=== PATIENT | male | born 1960 | race Caucasian/White ===

== ENCOUNTER 2022-09-06 13:02 | Inpatient (IN) ==
[2022-09-06 13:57] LABS: ABS Lymphocytes 1.5 10^3/uL (1.0-4.8); ABS Monocytes 1.4 10^3/uL (0.0-1.1); ABS Neutrophils 5.2 10^3/uL (1.5-7.6); ABS Nucleated RBC 0.01 10^3/ul; Eosinophil % 0.1 %; Hematocrit 43.6 % (38-53); Hemoglobin 15.3 g/dL (13.2-16.3); Lymphocyte % 18.6 %; Mean Corpuscular Hemoglobin 30.1 pg (27-33); Mean Corpuscular Hgb Conc 35.1 g/dL (31-36); Mean Corpuscular Volume 85.6 fL (80-97); Mean Platelet Volume 9.7 fL (7.5-11.2); Nucleated Red Blood Cells % 0.1 /100 WBC (0.0-0.4); Platelet Count 233 10^3/uL (150-450); Red Blood Count 5.09 10^6/uL (4.06-5.63); Red Cell Distribution Width 14.6 % (12-17); White Blood Count 8.2 10^3/uL (3.6-10.2)
[2022-09-06 14:09] LABS: INR 1.54 (0.88-1.18)
[2022-09-06 14:23] LABS: AST 290 U/L (13-39); Albumin 4.5 g/dL (3.2-5.2); Albumin/Globulin Ratio 1.6 (1-3); Alkaline Phosphatase 53 U/L (35-149); Anion Gap 10 mmol/L (2-16); Blood Urea Nitrogen 7 mg/dL (6-24); CO2 Carbon Dioxide 27 mmol/L (22-32); Calcium 9.8 mg/dL (8.6-10.3); Chloride 89 mmol/L (101-111); Creatinine, Serum 0.69 mg/dL (0.67-1.17); Globulin 2.9 g/dL (2-4); Glucose 106 mg/dL (70-100); Potassium 3.7 mmol/L (3.5-5.0); Sodium 126 mmol/L (135-145); Total Protein 7.4 g/dL (6.4-8.9); eGFR CKD-EPI 105.9 (>60)
[2022-09-06 14:24] LABS: Acetaminophen < 15 mcg/mL; Alcohol, S < 13 mg/dL (<13); Salicylate < 2.50 mg/dL (<30)
[2022-09-06 14:33] LABS: TSH Ultra Thyroid Stim Horm 1.13 mcIU/mL (0.34-5.60)
[2022-09-06 14:36] LABS: Valproic Acid < 13.0 mcg/mL (50-100)
[2022-09-06 14:39] LABS: ALT 676 U/L (7-52)
[2022-09-06] MEDS ORDERED: LORazepam 2 mg VIAL 1 ml IV PUSH ONE (14:47)
[2022-09-06] MEDS ORDERED: Lorazepam PYXIS KEY PRN (14:47)
[2022-09-06] MEDS ORDERED: Lactated Ringers 1000 ml BAG 1,000 ML IV ONE (14:48)
[2022-09-06] MEDS ORDERED: NS 0.9% 1000 ml BAG 1,000 ML IV SCH (16:45)
[2022-09-06] MEDS: Pantoprazole VIAL 40 MG VIAL IV SCH (17:39)
[2022-09-06] MEDS ORDERED: ACETYLCYSTEINE IV ONE ×2 (18:00→19:30)
[2022-09-06] MEDS ORDERED: D5W IV ONE ×2 (18:00→19:30)
[2022-09-07] MEDS ORDERED: ACETYLCYSTEINE IV ONE
[2022-09-07] MEDS ORDERED: D5W IV ONE
[2022-09-07 04:52] LABS: ABS Eosinophils 0.1 10^3/uL (0.0-0.5); ABS Lymphocytes 2.1 10^3/uL (1.0-4.8); ABS Monocytes 1.2 10^3/uL (0.0-1.1); ABS Neutrophils 3.5 10^3/uL (1.5-7.6); ABS Nucleated RBC 0.01 10^3/ul; Eosinophil % 0.9 %; Hematocrit 41.3 % (38-53); Hemoglobin 14.3 g/dL (13.2-16.3); Lymphocyte % 30.3 %; Mean Corpuscular Hemoglobin 30.1 pg (27-33); Mean Corpuscular Hgb Conc 34.7 g/dL (31-36); Mean Corpuscular Volume 86.8 fL (80-97); Mean Platelet Volume 9.8 fL (7.5-11.2); Nucleated Red Blood Cells % 0.2 /100 WBC (0.0-0.4); Platelet Count 195 10^3/uL (150-450); Red Blood Count 4.76 10^6/uL (4.06-5.63); Red Cell Distribution Width 14.7 % (12-17); White Blood Count 6.9 10^3/uL (3.6-10.2)
[2022-09-07 05:00] LABS: Activated Partial Thrombo Time 31.7 seconds (26.0-38.0); INR 1.95 (0.88-1.18)
[2022-09-07 05:07] LABS: Albumin 3.7 g/dL (3.2-5.2); Albumin/Globulin Ratio 1.7 (1-3); Calcium 8.6 mg/dL (8.6-10.3); Creatinine, Serum 0.65 mg/dL (0.67-1.17); Globulin 2.2 g/dL (2-4); Magnesium 1.8 mg/dL (1.9-2.7); Potassium 3.4 mmol/L (3.5-5.0); Total Bilirubin 0.7 mg/dL (0.2-1.0); Total Protein 5.9 g/dL (6.4-8.9); eGFR CKD-EPI 107.9 (>60)
[2022-09-07] MEDS ORDERED: KCL 20 MEQ/100 ML IVPREMIX 20 MEQ/100 ML BAG IV ONE (05:21)
[2022-09-07] MEDS ORDERED: Potassium Chlor 20 meq TAB.ER PO ONE (05:21)
[2022-09-07] MEDS ORDERED: Magnesium Sulfate 2 gm BAG 2 GM/50 ML BAG IVPB ONE (05:22)
[2022-09-07 09:00] LABS: Urine Appearance Clear; Urine Bilirubin Negative (Negative); Urine Blood Negative (Negative); Urine Color Yellow; Urine Glucose Negative (Negative); Urine Ketones 1+ (Negative); Urine Nitrite Negative (Negative); Urine Protein Negative (Negative); Urine Specific Gravity 1.006 (1.002-1.030); Urine Urobilinogen Negative (Negative)
[2022-09-07] MEDS ORDERED: Phytonadione Oral Solution 5 MG/25 ML UDC PO ONE (09:30)
[2022-09-07] MEDS: Pantoprazole VIAL 40 MG VIAL IV SCH (09:39)
[2022-09-07 09:44] LABS: Urine Benzodiazepine Screen None Detected (None Detect); Urine Cannabinoids Screen None Detected (None Detect); Urine Opiates Screen None Detected (None Detect)
[2022-09-07 14:53] LABS: Albumin 3.8 g/dL (3.2-5.2); Albumin/Globulin Ratio 1.7 (1-3); Direct Bilirubin 0.1 mg/dL (0.03-0.18); Globulin 2.3 g/dL (2-4); Indirect Bilirubin 0.5 mg/dL (0.3-1.0); Total Bilirubin 0.6 mg/dL (0.2-1.0); Total Protein 6.1 g/dL (6.4-8.9)
[2022-09-07 15:20] LABS: INR 1.67 (0.88-1.18)
[2022-09-08 06:04] LABS: ABS Eosinophils 0.1 10^3/uL (0.0-0.5); ABS Lymphocytes 2.7 10^3/uL (1.0-4.8); ABS Neutrophils 2.7 10^3/uL (1.5-7.6); ABS Nucleated RBC 0.01 10^3/ul; Eosinophil % 1.7 %; Hematocrit 38.3 % (38-53); Hemoglobin 13.3 g/dL (13.2-16.3); Lymphocyte % 41.4 %; Mean Corpuscular Hemoglobin 30.5 pg (27-33); Mean Corpuscular Hgb Conc 34.7 g/dL (31-36); Mean Corpuscular Volume 87.9 fL (80-97); Nucleated Red Blood Cells % 0.1 /100 WBC (0.0-0.4); Platelet Count 185 10^3/uL (150-450); Red Blood Count 4.35 10^6/uL (4.06-5.63); Red Cell Distribution Width 14.5 % (12-17); White Blood Count 6.5 10^3/uL (3.6-10.2)
[2022-09-08 06:12] LABS: INR 1.25 (0.88-1.18)
[2022-09-08 06:35] LABS: Albumin 3.5 g/dL (3.2-5.2); Albumin/Globulin Ratio 1.6 (1-3); Calcium 8.5 mg/dL (8.6-10.3); Creatinine, Serum 0.55 mg/dL (0.67-1.17); Globulin 2.2 g/dL (2-4); Magnesium 1.9 mg/dL (1.9-2.7); Potassium 3.4 mmol/L (3.5-5.0); Total Bilirubin 0.7 mg/dL (0.2-1.0); Total Protein 5.7 g/dL (6.4-8.9); eGFR CKD-EPI 113.5 (>60)
[2022-09-08] MEDS: Pantoprazole VIAL 40 MG VIAL IV SCH (08:03)
[2022-09-09 08:15] LABS: ABS Eosinophils 0.1 10^3/uL (0.0-0.5); ABS Lymphocytes 1.8 10^3/uL (1.0-4.8); ABS Monocytes 0.8 10^3/uL (0.0-1.1); ABS Neutrophils 4.7 10^3/uL (1.5-7.6); Eosinophil % 1.6 %; Hematocrit 40.2 % (38-53); Lymphocyte % 24.5 %; Mean Corpuscular Hemoglobin 30.6 pg (27-33); Mean Corpuscular Hgb Conc 34.9 g/dL (31-36); Mean Corpuscular Volume 87.7 fL (80-97); Mean Platelet Volume 9.8 fL (7.5-11.2); Platelet Count 206 10^3/uL (150-450); Red Blood Count 4.58 10^6/uL (4.06-5.63); Red Cell Distribution Width 14.7 % (12-17); White Blood Count 7.5 10^3/uL (3.6-10.2)
[2022-09-09 08:37] LABS: Albumin 3.8 g/dL (3.2-5.2); Albumin/Globulin Ratio 1.7 (1-3); Creatinine, Serum 0.7 mg/dL (0.67-1.17); Globulin 2.3 g/dL (2-4); HDL Cholesterol 48.2 mg/dL; INR 1.21 (0.88-1.18); Magnesium 1.9 mg/dL (1.9-2.7); Potassium 3.8 mmol/L (3.5-5.0); Total Bilirubin 0.8 mg/dL (0.2-1.0); Total Protein 6.1 g/dL (6.4-8.9); eGFR CKD-EPI 105.5 (>60)
[2022-09-09] MEDS ORDERED: Albuterol HFA INHALER 8 gm MDI INH PRN (12:11)
[2022-09-12 20:39] LABS: Albumin 4.4 g/dL (3.2-5.2); Albumin/Globulin Ratio 1.5 (1-3); Calcium 10.1 mg/dL (8.6-10.3); Creatinine, Serum 0.98 mg/dL (0.67-1.17); Potassium 4.1 mmol/L (3.5-5.0); Total Bilirubin 0.5 mg/dL (0.2-1.0); Total Protein 7.4 g/dL (6.4-8.9); eGFR CKD-EPI 87.7 (>60)
[2022-09-18 08:22] VITALS: BP 149/84
== END 2022-09-18 15:00 | disposition home or self-care (01) | DRG 918 ==
LOC: ED 13:02 → SUATTDRO 15:45 → EDHOLD 15:45 → ICU 17:20 → MED 09-08 10:35 → BSU 09-08 14:49
PROVIDERS: ADMIT Internal Medicine; ATTEND Psychiatry & Neurology Psychiatry

== ENCOUNTER 2022-09-20 23:07 | Inpatient (IN) ==
[2022-09-21 01:09] LABS: Urine Appearance Clear; Urine Bilirubin Negative (Negative); Urine Blood Negative (Negative); Urine Color Straw; Urine Glucose Negative (Negative); Urine Ketones Negative (Negative); Urine Nitrite Negative (Negative); Urine Protein Negative (Negative); Urine Specific Gravity 1.002 (1.002-1.030); Urine Urobilinogen Negative (Negative)
[2022-09-21 01:21] LABS: ALT 31 U/L (7-52); AST 18 U/L (13-39); Albumin 4.5 g/dL (3.2-5.2); Albumin/Globulin Ratio 1.7 (1-3); Alkaline Phosphatase 59 U/L (35-149); Anion Gap 7 mmol/L (2-16); Blood Urea Nitrogen 7 mg/dL (6-24); CO2 Carbon Dioxide 31 mmol/L (22-32); Calcium 9.9 mg/dL (8.6-10.3); Chloride 90 mmol/L (101-111); Creatinine, Serum 0.69 mg/dL (0.67-1.17); Globulin 2.6 g/dL (2-4); Glucose 91 mg/dL (70-100); Potassium 4.1 mmol/L (3.5-5.0); Sodium 128 mmol/L (135-145); Total Protein 7.1 g/dL (6.4-8.9); eGFR CKD-EPI 105.3 (>60)
[2022-09-21 01:22] LABS: Urine Benzodiazepine Screen None Detected (None Detect); Urine Cannabinoids Screen None Detected (None Detect); Urine Opiates Screen None Detected (None Detect)
[2022-09-21 01:23] LABS: Hematocrit 42.6 % (38-53); Hemoglobin 14.9 g/dL (13.2-16.3); Mean Corpuscular Hemoglobin 30.7 pg (27-33); Mean Corpuscular Hgb Conc 34.9 g/dL (31-36); Red Blood Count 4.85 10^6/uL (4.06-5.63); Red Cell Distribution Width 14.9 % (12-17)
[2022-09-21 01:39] LABS: Acetaminophen < 15 mcg/mL; Alcohol, S < 13 mg/dL (<13)
[2022-09-21 01:40] LABS: Salicylate < 2.50 mg/dL (<30)
[2022-09-21 01:55] LABS: TSH Ultra Thyroid Stim Horm 4.36 mcIU/mL (0.34-5.60)
[2022-09-21 02:13] LABS: ABS Lymphocytes 2.2 10^3/uL (1.0-4.8); ABS Neutrophils 3.7 10^3/uL (1.5-7.6); ABS Nucleated RBC 0.01 10^3/ul; Eosinophil % 0.5 %; Lymphocyte % 31.6 %; Mean Platelet Volume 10.8 fL (7.5-11.2); Nucleated Red Blood Cells % 0.1 /100 WBC (0.0-0.4); Platelet Count 218 10^3/uL (150-450)
[2022-09-21] MEDS ORDERED: Al Hydrox/Mg Hydrox/Simet LIQ 30 ML UDC PO PRN (05:25)
[2022-09-21] MEDS ORDERED: Albuterol HFA INHALER 8 gm MDI INH PRN (05:30)
[2022-09-21] MEDS: Vitamin THERAPEUTIC TAB PO SCH (08:44)
[2022-09-22] MEDS: Vitamin THERAPEUTIC TAB PO SCH (10:35)
[2022-09-23] MEDS: Vitamin THERAPEUTIC TAB PO SCH (09:58)
[2022-09-24] MEDS: Vitamin THERAPEUTIC TAB PO SCH (09:03)
[2022-09-24 11:37] LABS: Albumin 4.4 g/dL (3.2-5.2); Albumin/Globulin Ratio 1.6 (1-3); Calcium 9.8 mg/dL (8.6-10.3); Creatinine, Serum 0.86 mg/dL (0.67-1.17); Globulin 2.7 g/dL (2-4); Potassium 4.6 mmol/L (3.5-5.0); Total Bilirubin 0.6 mg/dL (0.2-1.0); Total Protein 7.1 g/dL (6.4-8.9); eGFR CKD-EPI 98.5 (>60)
[2022-09-25] MEDS: Vitamin THERAPEUTIC TAB PO SCH (08:32)
[2022-09-26] MEDS: Vitamin THERAPEUTIC TAB PO SCH (08:23)
[2022-09-27] MEDS: Vitamin THERAPEUTIC TAB PO SCH (09:44)
[2022-09-28] MEDS: Vitamin THERAPEUTIC TAB PO SCH (07:57)
[2022-09-28 08:33] LABS: Hematocrit 41.8 % (38-53); Hemoglobin 14.3 g/dL (13.2-16.3); Mean Corpuscular Hemoglobin 30.2 pg (27-33); Mean Corpuscular Hgb Conc 34.2 g/dL (31-36); Mean Corpuscular Volume 88.2 fL (80-97); Mean Platelet Volume 10.5 fL (7.5-11.2); Platelet Count 219 10^3/uL (150-450); Red Blood Count 4.75 10^6/uL (4.06-5.63); Red Cell Distribution Width 15.4 % (12-17); White Blood Count 5.9 10^3/uL (3.6-10.2)
[2022-09-28 09:12] LABS: ABS Lymphocytes 2.7 10^3/uL (1.0-4.8); ABS Monocytes 0.8 10^3/uL (0.0-1.1); ABS Neutrophils 2.4 10^3/uL (1.5-7.6); ABS Nucleated RBC 0.01 10^3/ul; Eosinophil % 0.8 %; Lymphocyte % 44.9 %; Nucleated Red Blood Cells % 0.1 /100 WBC (0.0-0.4)
[2022-09-29] MEDS: Vitamin THERAPEUTIC TAB PO SCH (09:05)
[2022-09-30] MEDS: Vitamin THERAPEUTIC TAB PO SCH (08:05)
[2022-10-01] MEDS: Vitamin THERAPEUTIC TAB PO SCH (08:24)
[2022-10-02] MEDS: Vitamin THERAPEUTIC TAB PO SCH (08:40)
[2022-10-02 10:41] VITALS: BP 135/90
[2022-10-03] MEDS: Vitamin THERAPEUTIC TAB PO SCH (07:17)
[2022-10-03 08:10] LABS: ABS Eosinophils 0.1 10^3/uL (0.0-0.5); ABS Lymphocytes 2.3 10^3/uL (1.0-4.8); ABS Monocytes 0.9 10^3/uL (0.0-1.1); ABS Neutrophils 3.7 10^3/uL (1.5-7.6); ABS Nucleated RBC 0.01 10^3/ul; Hematocrit 42.9 % (38-53); Hemoglobin 14.7 g/dL (13.2-16.3); Lymphocyte % 32.8 %; Mean Corpuscular Hemoglobin 30.4 pg (27-33); Mean Corpuscular Hgb Conc 34.3 g/dL (31-36); Mean Corpuscular Volume 88.6 fL (80-97); Mean Platelet Volume 10.4 fL (7.5-11.2); Nucleated Red Blood Cells % 0.1 /100 WBC (0.0-0.4); Platelet Count 226 10^3/uL (150-450); Red Blood Count 4.84 10^6/uL (4.06-5.63); Red Cell Distribution Width 15.5 % (12-17)
== END 2022-10-03 12:10 | disposition home or self-care (01) | DRG 885 ==
LOC: ED 23:07 → EDHOLD 09-21 04:44 → BSU 09-21 05:48
PROVIDERS: ADMIT Psychiatry & Neurology Psychiatry; ATTEND Student in an Organized Health Care Education/Training Program

== ENCOUNTER 2022-10-11 10:15 | Inpatient (IN) ==
[2022-10-11 11:09] LABS: Hematocrit 35.3 % (38-53); Hemoglobin 12.7 g/dL (13.2-16.3); Mean Corpuscular Hemoglobin 30.9 pg (27-33); Mean Corpuscular Hgb Conc 35.9 g/dL (31-36); Mean Platelet Volume 10.4 fL (7.5-11.2); Platelet Count 157 10^3/uL (150-450)
[2022-10-11] MEDS ORDERED: Metoprolol Tartrate 5 mg VIAL 5 ml VIAL (1 mg/ml) IV ONE ×2 (11:16→21:04)
[2022-10-11 11:23] LABS: ABS Eosinophils 0.1 10^3/uL (0.0-0.5); ABS Lymphocytes 0.7 10^3/uL (1.0-4.8); ABS Neutrophils 7.1 10^3/uL (1.5-7.6); ABS Nucleated RBC 0.01 10^3/ul; Albumin 3.9 g/dL (3.2-5.2); Albumin/Globulin Ratio 1.4 (1-3); Calcium 9.1 mg/dL (8.6-10.3); Creatinine, Serum 0.57 mg/dL (0.67-1.17); Eosinophil % 1.5 %; Globulin 2.8 g/dL (2-4); Lymphocyte % 6.9 %; Magnesium 1.7 mg/dL (1.9-2.7); Nucleated Red Blood Cells % 0.1 /100 WBC (0.0-0.4); Potassium 3.8 mmol/L (3.5-5.0); Total Bilirubin 0.4 mg/dL (0.2-1.0); Total Protein 6.7 g/dL (6.4-8.9); eGFR CKD-EPI 111.5 (>60)
[2022-10-11] MEDS ORDERED: NS 0.9% 1000 ml BAG 1,000 ML IV ONE (11:34)
[2022-10-11 12:15] LABS: TSH Ultra Thyroid Stim Horm 2.59 mcIU/mL (0.34-5.60)
[2022-10-11 13:51] LABS: High Sensitivity Troponin 1 Hr 20 pg/mL (<20)
[2022-10-11] MEDS ORDERED: Etomidate 20 mg/10 ml 2 MG/ML 10 ml VIAL IV ONE (14:21)
[2022-10-11] MEDS ORDERED: Acetaminophen IV 1 GM/100ML 1,000 MG/100 ML BAG IV ONE (14:35)
[2022-10-11] MEDS ORDERED: Magnesium Sulfate 2 gm BAG 2 GM/50 ML BAG IVPB ONE (15:16)
[2022-10-11 16:26] LABS: Calcium 8.5 mg/dL (8.6-10.3); Creatinine, Serum 0.6 mg/dL (0.67-1.17); Potassium 3.8 mmol/L (3.5-5.0); eGFR CKD-EPI 109.8 (>60)
[2022-10-11] MEDS ORDERED: Albuterol HFA INHALER 8 gm MDI INH PRN (17:12)
[2022-10-11] MEDS ORDERED: Furosemide 40 mg/4 ml IV VIAL IV ONE (18:05)
[2022-10-11] MEDS ORDERED: KCL 20 MEQ/100 ML IVPREMIX 20 MEQ/100 ML BAG IV ONE (19:18)
[2022-10-11 20:26] LABS: Urine Appearance Clear; Urine Bilirubin Negative (Negative); Urine Blood Negative (Negative); Urine Color Yellow; Urine Glucose Negative (Negative); Urine Ketones Negative (Negative); Urine Nitrite Negative (Negative); Urine Protein Negative (Negative); Urine Specific Gravity 1.013 (1.002-1.030); Urine Urobilinogen Negative (Negative)
[2022-10-11] MEDS: Mometasone 220 MCG MDI INH SCH (21:30)
[2022-10-12 07:25] LABS: Hematocrit 33.4 % (38-53); Hemoglobin 11.6 g/dL (13.2-16.3); Mean Corpuscular Hemoglobin 30.5 pg (27-33); Mean Corpuscular Hgb Conc 34.7 g/dL (31-36); Mean Corpuscular Volume 87.9 fL (80-97); Mean Platelet Volume 10.2 fL (7.5-11.2); Platelet Count 159 10^3/uL (150-450); Red Cell Distribution Width 16.2 % (12-17); White Blood Count 6.7 10^3/uL (3.6-10.2)
[2022-10-12 07:36] LABS: Calcium 8.5 mg/dL (8.6-10.3); Creatinine, Serum 0.75 mg/dL (0.67-1.17); Magnesium 2.2 mg/dL (1.9-2.7); Phosphorus 4.3 mg/dL (2.5-5.0); Potassium 4.2 mmol/L (3.5-5.0); eGFR CKD-EPI 102.7 (>60)
[2022-10-12] MEDS ORDERED: NS 0.9% 1000 ml BAG 1,000 ML IV SCH (08:15)
[2022-10-12] MEDS ORDERED: Metoprolol Tartrate 5 mg VIAL 5 ml VIAL (1 mg/ml) IV PRN ×2 (14:51→16:12)
[2022-10-12] MEDS: Mometasone 220 MCG MDI INH SCH (20:00)
[2022-10-13 07:07] LABS: Hemoglobin 11.4 g/dL (13.2-16.3); Mean Corpuscular Hemoglobin 30.9 pg (27-33); Mean Corpuscular Hgb Conc 35.4 g/dL (31-36); Mean Corpuscular Volume 87.1 fL (80-97); Mean Platelet Volume 10.2 fL (7.5-11.2); Platelet Count 178 10^3/uL (150-450); Red Blood Count 3.68 10^6/uL (4.06-5.63); White Blood Count 10.8 10^3/uL (3.6-10.2)
[2022-10-13 07:23] LABS: Calcium 8.6 mg/dL (8.6-10.3); Creatinine, Serum 0.6 mg/dL (0.67-1.17); Magnesium 1.9 mg/dL (1.9-2.7); Potassium 4.1 mmol/L (3.5-5.0); eGFR CKD-EPI 109.8 (>60)
[2022-10-13] MEDS ORDERED: Naloxone 0.4 mg VIAL 0.4 mg/ml 1 ml VIAL ONE (10:21)
[2022-10-13] MEDS ORDERED: Flumazenil 0.5 mg/5 ml 0.1 MG/ML 5 ml VIAL ONE (10:21)
[2022-10-13] MEDS: Midazolam 10 mg/10 ml VIAL 1 mg/ml 10 ml VIAL (10 mg) IV SLOW PU ONE ×2 (10:30→12:46)
[2022-10-13] MEDS: fentaNYL 100 mcg/2 ml 50 MCG/ML VIAL IV SLOW PU ONE ×2 (10:30→12:46)
[2022-10-13] MEDS ORDERED: Lactated Ringers 1000 ml BAG 1,000 ML IV SCH (12:00)
[2022-10-13] MEDS: Mometasone 220 MCG MDI INH SCH (20:03)
[2022-10-14 06:10] LABS: Hematocrit 30.8 % (38-53); Hemoglobin 11.1 g/dL (13.2-16.3); Mean Corpuscular Hemoglobin 30.8 pg (27-33); Mean Corpuscular Volume 85.6 fL (80-97); Mean Platelet Volume 9.7 fL (7.5-11.2); Platelet Count 195 10^3/uL (150-450); Red Cell Distribution Width 15.8 % (12-17); White Blood Count 10.9 10^3/uL (3.6-10.2)
[2022-10-14 06:13] LABS: ABS Eosinophils 0.1 10^3/uL (0.0-0.5); ABS Lymphocytes 1.2 10^3/uL (1.0-4.8); ABS Monocytes 1.8 10^3/uL (0.0-1.1); ABS Neutrophils 7.9 10^3/uL (1.5-7.6); ABS Nucleated RBC 0.01 10^3/ul; Lymphocyte % 10.8 %; Nucleated Red Blood Cells % 0.1 /100 WBC (0.0-0.4)
[2022-10-14 06:22] LABS: Calcium 8.7 mg/dL (8.6-10.3); Creatinine, Serum 0.49 mg/dL (0.67-1.17); Magnesium 1.9 mg/dL (1.9-2.7); Potassium 4.4 mmol/L (3.5-5.0); eGFR CKD-EPI 116.8 (>60)
[2022-10-14 09:54] LABS: Phosphorus 4.2 mg/dL (2.5-5.0)
[2022-10-14 17:24] LABS: Urine Osmo 764 mOsm/kg (150-1150)
[2022-10-14] MEDS: Mometasone 220 MCG MDI INH SCH (19:26)
[2022-10-15 07:58] LABS: Hematocrit 32.4 % (38-53); Hemoglobin 11.4 g/dL (13.2-16.3); Mean Corpuscular Hemoglobin 31.1 pg (27-33); Mean Corpuscular Hgb Conc 35.2 g/dL (31-36); Mean Corpuscular Volume 88.2 fL (80-97); Mean Platelet Volume 9.8 fL (7.5-11.2); Platelet Count 266 10^3/uL (150-450); Red Blood Count 3.68 10^6/uL (4.06-5.63); Red Cell Distribution Width 15.7 % (12-17)
[2022-10-15 08:08] LABS: Calcium 8.7 mg/dL (8.6-10.3); Creatinine, Serum 0.44 mg/dL (0.67-1.17); Potassium 4.5 mmol/L (3.5-5.0); eGFR CKD-EPI 120.6 (>60)
[2022-10-15 08:39] LABS: ABS Eosinophils 0.2 10^3/uL (0.0-0.5); ABS Lymphocytes 0.9 10^3/uL (1.0-4.8); ABS Monocytes 2.1 10^3/uL (0.0-1.1); ABS Neutrophils 7.7 10^3/uL (1.5-7.6); Eosinophil % 2.1 %; Lymphocyte % 8.1 %
[2022-10-15 16:47] LABS: Anaplasma phagocytophilum Negative (Negative); B. miyamotoi PCR, B Negative (Negative); Babesia divergens/MO-1 Negative (Negative); Babesia ducani Negative (Negative); Ehrlichia chaffeensis Negative (Negative); Ehrlichia ewingii/canis Negative (Negative); Ehrlichia muris eauclairensis Negative (Negative)
[2022-10-15] MEDS: Mometasone 220 MCG MDI INH SCH (19:05)
[2022-10-16 06:51] LABS: Hematocrit 35.4 % (38-53); Hemoglobin 12.3 g/dL (13.2-16.3); Mean Corpuscular Hemoglobin 30.4 pg (27-33); Mean Corpuscular Hgb Conc 34.6 g/dL (31-36); Mean Corpuscular Volume 87.7 fL (80-97); Mean Platelet Volume 9.3 fL (7.5-11.2); Platelet Count 323 10^3/uL (150-450); Red Blood Count 4.04 10^6/uL (4.06-5.63); White Blood Count 10.5 10^3/uL (3.6-10.2)
[2022-10-16 07:08] LABS: Calcium 8.4 mg/dL (8.6-10.3); Creatinine, Serum 0.54 mg/dL (0.67-1.17); Potassium 4.5 mmol/L (3.5-5.0); eGFR CKD-EPI 113.4 (>60)
[2022-10-16 07:59] LABS: RBC Morphology Normal (Normal)
[2022-10-16 08:00] LABS: ABS Eosinophils 0.2 10^3/uL (0.0-0.5); ABS Monocytes 1.8 10^3/uL (0.0-1.1); ABS Neutrophils 7.4 10^3/uL (1.5-7.6); ABS Nucleated RBC 0.02 10^3/ul; Eosinophil % 2.4 %; Lymphocyte % 9.6 %; Nucleated Red Blood Cells % 0.1 /100 WBC (0.0-0.4)
[2022-10-16] MEDS ORDERED: Metoprolol Tartrate 5 mg VIAL 5 ml VIAL (1 mg/ml) IV PRN (11:20)
[2022-10-16] MEDS ORDERED: Naloxone 0.4 mg VIAL 0.4 mg/ml 1 ml VIAL ONE (15:49)
[2022-10-16] MEDS ORDERED: Midazolam 5 mg/5 ml VIAL 1 mg/ml 5 ml VIAL (5 mg) ONE (15:49)
[2022-10-16] MEDS ORDERED: fentaNYL 100 mcg/2 ml 50 MCG/ML VIAL ONE (15:49)
[2022-10-16] MEDS ORDERED: Flumazenil 0.5 mg/5 ml 0.1 MG/ML 5 ml VIAL ONE (15:49)
[2022-10-16] MEDS ORDERED: fentaNYL 100 mcg/2 ml 50 MCG/ML VIAL IV SLOW PU ONE (16:16)
[2022-10-16] MEDS ORDERED: Flumazenil 0.5 mg/5 ml 0.1 MG/ML 5 ml VIAL IV PRN (16:16)
[2022-10-16] MEDS ORDERED: Naloxone 0.4 mg VIAL 0.4 mg/ml 1 ml VIAL IV PUSH PRN (16:16)
[2022-10-16] MEDS ORDERED: Midazolam 10 mg/10 ml VIAL 1 mg/ml 10 ml VIAL (10 mg) IV SLOW PU ONE (16:16)
[2022-10-16] MEDS: Mometasone 220 MCG MDI INH SCH (20:29)
[2022-10-17 14:36] LABS: Hematocrit 32.9 % (38-53); Hemoglobin 11.5 g/dL (13.2-16.3); Mean Corpuscular Hemoglobin 30.6 pg (27-33); Mean Corpuscular Hgb Conc 34.9 g/dL (31-36); Mean Corpuscular Volume 87.8 fL (80-97); Mean Platelet Volume 9.6 fL (7.5-11.2); Platelet Count 352 10^3/uL (150-450); Red Blood Count 3.75 10^6/uL (4.06-5.63); Red Cell Distribution Width 15.8 % (12-17); White Blood Count 10.7 10^3/uL (3.6-10.2)
[2022-10-17 14:52] LABS: Calcium 8.9 mg/dL (8.6-10.3); Creatinine, Serum 0.53 mg/dL (0.67-1.17); Potassium 4.3 mmol/L (3.5-5.0)
[2022-10-17 15:15] LABS: RBC Morphology Normal (Normal); Toxic Granulation 1+
[2022-10-17 15:16] LABS: ABS Eosinophils 0.2 10^3/uL (0.0-0.5); ABS Monocytes 1.7 10^3/uL (0.0-1.1); ABS Neutrophils 7.7 10^3/uL (1.5-7.6); Eosinophil % 2.3 %; Lymphocyte % 9.2 %
[2022-10-17 15:22] VITALS: BP 135/94
== END 2022-10-17 17:55 | disposition home or self-care (01) | DRG 309 ==
LOC: EDHOLD 10:15 → ED 10:15 → SUATTDRO 16:56 → MEDTELE 21:49 → SUATTDRO 10-13 14:43
PROVIDERS: ADMIT Student in an Organized Health Care Education/Training Program; ATTEND Internal Medicine
PROC: CARDVER (ICD-10-PCS; 2022-10-16 15:50)

== ENCOUNTER 2023-08-31 14:25 | Inpatient (IN) ==
[2023-08-31 15:53] LABS: ABS Lymphocytes 0.9 10^3/uL (1.0-4.8); ABS Monocytes 0.8 10^3/uL (0.0-1.1); ABS Neutrophils 4.3 10^3/uL (1.5-7.6); Eosinophil % 0.1 %; Hematocrit 39.7 % (38-53); Hemoglobin 13.7 g/dL (13.2-16.3); Lymphocyte % 14.8 %; Mean Corpuscular Hemoglobin 30.6 pg (27-33); Mean Corpuscular Hgb Conc 34.4 g/dL (31-36); Mean Platelet Volume 9.9 fL (7.5-11.2); Nucleated Red Blood Cells % 0.1 %/100WBC (0.0-0.8); Platelet Count 212 10^3/uL (150-450); Red Blood Count 4.46 10^6/uL (4.06-5.63); Red Cell Distribution Width 13.9 % (12-17); White Blood Count 5.9 10^3/uL (3.6-10.2)
[2023-08-31 16:02] LABS: Urine Appearance Clear; Urine Bilirubin Negative (Negative); Urine Blood Negative (Negative); Urine Color Light-Yellow; Urine Glucose Negative (Negative); Urine Ketones Negative (Negative); Urine Nitrite Negative (Negative); Urine Protein Negative (Negative); Urine Specific Gravity 1.009 (1.002-1.030); Urine Urobilinogen Negative (Negative)
[2023-08-31 16:17] LABS: Urine Benzodiazepine Screen None Detected (None Detect); Urine Cannabinoids Screen None Detected (None Detect); Urine Opiates Screen None Detected (None Detect)
[2023-08-31 16:31] LABS: ALT 16 U/L (7-52); AST 16 U/L (13-39); Acetaminophen < 15 mcg/mL; Albumin 4.1 g/dL (3.2-5.2); Albumin/Globulin Ratio 1.8 (1-3); Alcohol, S < 13 mg/dL (<13); Alkaline Phosphatase 50 U/L (35-149); Anion Gap 7 mmol/L (2-16); Blood Urea Nitrogen 6 mg/dL (6-24); CO2 Carbon Dioxide 29 mmol/L (22-32); Calcium 9.4 mg/dL (8.6-10.3); Chloride 93 mmol/L (101-111); Creatinine, Serum 0.71 mg/dL (0.67-1.17); Globulin 2.3 g/dL (2-4); Glucose 104 mg/dL (70-100); Potassium 4.2 mmol/L (3.5-5.0); Salicylate < 2.50 mg/dL (<30); Sodium 129 mmol/L (135-145); Total Bilirubin 0.4 mg/dL (0.2-1.0); Total Protein 6.4 g/dL (6.4-8.9); eGFR CKD-EPI 104.4 (>60)
[2023-08-31 16:44] LABS: TSH Ultra Thyroid Stim Horm 4.35 mcIU/mL (0.34-5.60)
[2023-09-01] MEDS ORDERED: Al Hydrox/Mg Hydrox/Simet LIQ 30 ML UDC PO PRN (08:32)
[2023-09-01] MEDS ORDERED: Albuterol HFA INHALER 8 gm MDI INH PRN (08:34)
[2023-09-01] MEDS ORDERED: Amiodarone 400 mg TAB PO SCH (09:00)
[2023-09-01] MEDS ORDERED: Mometasone 220 MCG MDI INH PRN (09:07)
[2023-09-02 08:32] LABS: HDL Cholesterol 73.5 mg/dL
[2023-09-02 10:38] LABS: Albumin 4.5 g/dL (3.2-5.2); Albumin/Globulin Ratio 1.7 (1-3); Calcium 9.6 mg/dL (8.6-10.3); Creatinine, Serum 0.83 mg/dL (0.67-1.17); Globulin 2.6 g/dL (2-4); Potassium 4.3 mmol/L (3.5-5.0); Total Bilirubin 0.5 mg/dL (0.2-1.0); Total Protein 7.1 g/dL (6.4-8.9); eGFR CKD-EPI 99.6 (>60)
[2023-09-10 10:22] VITALS: BP 163/116
== END 2023-09-11 14:10 | disposition home or self-care (01) | DRG 885 ==
LOC: ED 14:25 → EDHOLD 09-01 08:32 → BSU 09-01 08:55
PROVIDERS: ADMIT Psychiatry & Neurology Psychiatry; ATTEND Student in an Organized Health Care Education/Training Program

== ENCOUNTER 2024-01-10 14:00 | Inpatient (IN) ==
[2024-01-10 14:36] LABS: Venous Bicarbonate HCO3 28.4 mmol/L (24-28)
[2024-01-10 14:49] LABS: ABS Lymphocytes 0.9 10^3/uL (1.0-4.8); ABS Monocytes 0.7 10^3/uL (0.0-1.1); ABS Neutrophils 6.1 10^3/uL (1.5-7.6); Eosinophil % 0.1 %; Hematocrit 41.1 % (38-53); Lymphocyte % 12.2 %; Mean Corpuscular Hemoglobin 30.6 pg (27-33); Mean Corpuscular Volume 89.9 fL (80-97); Mean Platelet Volume 10.7 fL (7.5-11.2); Nucleated Red Blood Cells % 0.1 %/100WBC (0.0-0.8); Platelet Count 220 10^3/uL (150-450); Red Blood Count 4.57 10^6/uL (4.06-5.63); Red Cell Distribution Width 13.6 % (12-17); White Blood Count 7.7 10^3/uL (3.6-10.2)
[2024-01-10 14:49] LABS: INR 3.09 (0.85-1.14)
[2024-01-10] MEDS: CALCIUM GLUCONATE 1GM/50ML NS 1 GM/50 ML BAG IV ONE (15:00)
[2024-01-10] MEDS: Ondansetron 4 mg VIAL 2 MG/ML 2 ml VIAL IV ONE (15:09)
[2024-01-10 15:21] LABS: Urine Appearance Clear; Urine Bilirubin Negative (Negative); Urine Blood Negative (Negative); Urine Color Colorless; Urine Glucose Negative (Negative); Urine Ketones Negative (Negative); Urine Nitrite Negative (Negative); Urine Protein Negative (Negative); Urine Specific Gravity 1.006 (1.002-1.030); Urine Urobilinogen Negative (Negative)
[2024-01-10 15:24] LABS: ALT 15 U/L (7-52); Acetaminophen < 15 mcg/mL; Albumin/Globulin Ratio 1.5 (1-3); Alcohol, S < 13 mg/dL (<13); Alkaline Phosphatase 56 U/L (35-149); Blood Urea Nitrogen 7 mg/dL (6-24); CO2 Carbon Dioxide 28 mmol/L (22-32); Calcium 8.8 mg/dL (8.6-10.3); Chloride 92 mmol/L (101-111); Creatinine, Serum 0.73 mg/dL (0.67-1.17); Globulin 2.7 g/dL (2-4); Glucose 131 mg/dL (70-100); Salicylate < 2.50 mg/dL (<30); Sodium 130 mmol/L (135-145); Total Bilirubin 0.6 mg/dL (0.2-1.0); Total Protein 6.7 g/dL (6.4-8.9); eGFR CKD-EPI 102.9 (>60)
[2024-01-10 15:25] LABS: Anion Gap 10 mmol/L (2-16)
[2024-01-10 15:27] LABS: TSH Ultra Thyroid Stim Horm 2.01 mcIU/mL (0.34-5.60)
[2024-01-10] MEDS: Norepinephrine 4 MG/250mL D5W 4,000 MCG/250 ML BAG IV SCH (15:47)
[2024-01-10 15:51] LABS: Urine Benzodiazepine Screen None Detected (None Detect); Urine Cannabinoids Screen None Detected (None Detect); Urine Opiates Screen None Detected (None Detect)
[2024-01-10] MEDS: Lactated Ringers 1000 ml BAG 1,000 ML IV ONE (15:53)
[2024-01-10 16:18] LABS: Valproic Acid 161.1 mcg/mL (50-100)
[2024-01-10 16:39] LABS: Magnesium 1.5 mg/dL (1.9-2.7); Potassium Redraw 3.9 mmol/L (3.5-5.0)
[2024-01-10] MEDS: Magnesium Sulf 4 GM/100 ML IV 4,000 MG/100 ML BAG IVPB ONE (17:34)
[2024-01-10] MEDS: KCL 10 MEQ/50 ML IVPREMIX 10 MEQ/50 ML BAG IV ONE (18:08)
[2024-01-11 04:14] LABS: ABS Lymphocytes 2.7 10^3/uL (1.0-4.8); ABS Monocytes 0.7 10^3/uL (0.0-1.1); ABS Neutrophils 4.6 10^3/uL (1.5-7.6); ABS Nucleated RBC 0.01 10^3/ul; Eosinophil % 0.2 %; Hematocrit 39.3 % (38-53); Hemoglobin 13.5 g/dL (13.2-16.3); Lymphocyte % 33.4 %; Mean Corpuscular Hemoglobin 30.6 pg (27-33); Mean Corpuscular Hgb Conc 34.4 g/dL (31-36); Mean Corpuscular Volume 89.1 fL (80-97); Mean Platelet Volume 10.1 fL (7.5-11.2); Nucleated Red Blood Cells % 0.1 %/100WBC (0.0-0.8); Platelet Count 216 10^3/uL (150-450); Red Blood Count 4.41 10^6/uL (4.06-5.63); Red Cell Distribution Width 13.7 % (12-17)
[2024-01-11 04:22] LABS: INR 1.63 (0.85-1.14)
[2024-01-11 04:57] LABS: Albumin 3.8 g/dL (3.2-5.2); Albumin/Globulin Ratio 1.8 (1-3); Calcium 8.7 mg/dL (8.6-10.3); Creatinine, Serum 0.88 mg/dL (0.67-1.17); Globulin 2.1 g/dL (2-4); Magnesium 2.3 mg/dL (1.9-2.7); Potassium 3.7 mmol/L (3.5-5.0); Total Bilirubin 0.4 mg/dL (0.2-1.0); Total Protein 5.9 g/dL (6.4-8.9); eGFR CKD-EPI 97.2 (>60)
[2024-01-11] MEDS: Magnesium CITRATE LIQ 300 ML BTL PO ONE (18:12)
[2024-01-12 07:18] LABS: ABS Lymphocytes 2.5 10^3/uL (1.0-4.8); ABS Monocytes 0.9 10^3/uL (0.0-1.1); ABS Neutrophils 3.9 10^3/uL (1.5-7.6); ABS Nucleated RBC 0.01 10^3/ul; Eosinophil % 0.3 %; Hematocrit 41.6 % (38-53); Hemoglobin 14.3 g/dL (13.2-16.3); Lymphocyte % 34.2 %; Mean Corpuscular Hemoglobin 30.7 pg (27-33); Mean Corpuscular Hgb Conc 34.4 g/dL (31-36); Mean Corpuscular Volume 89.4 fL (80-97); Mean Platelet Volume 10.5 fL (7.5-11.2); Nucleated Red Blood Cells % 0.1 %/100WBC (0.0-0.8); Platelet Count 181 10^3/uL (150-450); Red Blood Count 4.66 10^6/uL (4.06-5.63); White Blood Count 7.3 10^3/uL (3.6-10.2)
[2024-01-12 07:31] LABS: Calcium 8.8 mg/dL (8.6-10.3); Creatinine, Serum 0.65 mg/dL (0.67-1.17); Potassium 3.7 mmol/L (3.5-5.0); eGFR CKD-EPI 106.5 (>60)
[2024-01-12 12:18] LABS: Albumin 3.8 g/dL (3.2-5.2); Albumin/Globulin Ratio 1.5 (1-3); Direct Bilirubin 0.1 mg/dL (0.03-0.18); Globulin 2.5 g/dL (2-4); Indirect Bilirubin 0.6 mg/dL (0.3-1.0); Total Bilirubin 0.7 mg/dL (0.2-1.0); Total Protein 6.3 g/dL (6.4-8.9)
[2024-01-12] MEDS: Lactulose 30 ml UDC PO SCH (15:16)
[2024-01-12] MEDS ORDERED: Polyethylene Glycol 3350 17 GM PACKET PO SCH (21:00)
[2024-01-13 06:51] LABS: Creatinine, Serum 0.59 mg/dL (0.67-1.17); HDL Cholesterol 54.4 mg/dL; Magnesium 1.7 mg/dL (1.9-2.7); Potassium 3.9 mmol/L (3.5-5.0); eGFR CKD-EPI 109.7 (>60)
[2024-01-13] MEDS: Magnesium Sulfate 2 gm BAG 2 GM/50 ML BAG IVPB ONE (08:10)
[2024-01-15] MEDS: Mometasone 220 MCG MDI INH SCH (19:59)
[2024-01-22 09:31] VITALS: BP 147/95
== END 2024-01-22 16:40 | disposition home or self-care (01) | DRG 918 ==
LOC: ED 14:00 → EDHOLD 15:44 → ICU 16:21 → MED 16:45 → BSU 01-12 11:30
PROVIDERS: ADMIT Internal Medicine Critical Care Medicine; ATTEND Student in an Organized Health Care Education/Training Program

== ENCOUNTER 2024-02-23 11:51 | Inpatient (IN) ==
[2024-02-23] MEDS: Albuterol/Ipratropium NEB.SOL (2.5/0.5 MG) 3 ML NEB.SOLN INH ONE ×2 (12:31→16:38)
[2024-02-23 12:47] LABS: INR 1.2 (0.85-1.14)
[2024-02-23 12:57] LABS: High Sens Troponin Baseline 8 pg/mL (<20)
[2024-02-23 13:09] LABS: ALT 19 U/L (7-52); Albumin 4.1 g/dL (3.2-5.2); Albumin/Globulin Ratio 1.3 (1-3); Alkaline Phosphatase 79 U/L (35-149); Anion Gap 8 mmol/L (2-16); Blood Urea Nitrogen 9 mg/dL (6-24); CO2 Carbon Dioxide 30 mmol/L (22-32); Chloride 89 mmol/L (101-111); Creatinine, Serum 0.66 mg/dL (0.67-1.17); Globulin 3.1 g/dL (2-4); Glucose 94 mg/dL (70-100); Sodium 127 mmol/L (135-145); Total Bilirubin 0.6 mg/dL (0.2-1.0); Total Protein 7.2 g/dL (6.4-8.9)
[2024-02-23 13:35] LABS: Hematocrit 37.2 % (38-53); Hemoglobin 12.8 g/dL (13.2-16.3); Mean Corpuscular Hemoglobin 31.1 pg (27-33); Mean Corpuscular Hgb Conc 34.3 g/dL (31-36); Mean Corpuscular Volume 90.4 fL (80-97); Mean Platelet Volume 10.1 fL (7.5-11.2); Platelet Count 181 10^3/uL (150-450); Red Blood Count 4.12 10^6/uL (4.06-5.63); Red Cell Distribution Width 13.8 % (12-17); White Blood Count 12.1 10^3/uL (3.6-10.2)
[2024-02-23] MEDS: cefTRIAXone 1 gm/50 mL D5W 1 GM/50 ML BAG IV ONE (13:46)
[2024-02-23 14:01] LABS: ABS Basophils 0.1 10^3/uL (0.0-0.1); ABS Lymphocytes 1.7 10^3/uL (1.0-4.8); ABS Monocytes 1.6 10^3/uL (0.0-1.1); ABS Neutrophils 8.7 10^3/uL (1.5-7.6); ABS Nucleated RBC 0.01 10^3/ul; Eosinophil % 0.3 %; Lymphocyte % 14.4 %; Nucleated Red Blood Cells % 0.1 %/100WBC (0.0-0.8)
[2024-02-23 14:33] LABS: Potassium Redraw 4.2 mmol/L (3.5-5.0)
[2024-02-23] MEDS: methylPREDNISolone SOD 125 mg 250 MG in NS 0.9% 100 ml BAG 100 ML IV ONE (15:47)
[2024-02-23 17:22] LABS: Osmolality Serum 276 mOsm/kg (275-295)
[2024-02-23] MEDS ORDERED: Sulfur Hexaflouride MICROSPHR 25 MG VIAL IV PRN (17:39)
[2024-02-23 17:59] LABS: Magnesium 1.9 mg/dL (1.9-2.7)
[2024-02-23] MEDS: Furosemide 40 mg/4 ml IV VIAL IV SLOW PU ONE (18:55)
[2024-02-23] MEDS: Azithromycin 500 mg/250 ml NS 500 MG/250 ML BAG IVPB ONE (19:16)
[2024-02-23] MEDS: Azithromycin 500 mg/250 ml NS 500 MG/250 ML BAG IVPB SCH (19:22)
[2024-02-24] MEDS: Albuterol HFA INHALER 8 gm MDI INH PRN (01:01)
[2024-02-24] MEDS: Albuterol/Ipratropium NEB.SOL (2.5/0.5 MG) 3 ML NEB.SOLN INH ONE (02:18)
[2024-02-24] MEDS: Metoprolol Tartrate 5 mg VIAL 5 ml VIAL (1 mg/ml) IV PRN (02:19)
[2024-02-24 05:53] LABS: ABS Lymphocytes 0.8 10^3/uL (1.0-4.8); ABS Monocytes 0.4 10^3/uL (0.0-1.1); ABS Neutrophils 9.3 10^3/uL (1.5-7.6); Hemoglobin 13.1 g/dL (13.2-16.3); Lymphocyte % 7.6 %; Mean Corpuscular Hemoglobin 31.2 pg (27-33); Mean Corpuscular Hgb Conc 34.6 g/dL (31-36); Mean Corpuscular Volume 90.1 fL (80-97); Mean Platelet Volume 10.3 fL (7.5-11.2); Platelet Count 184 10^3/uL (150-450); Red Blood Count 4.22 10^6/uL (4.06-5.63); Red Cell Distribution Width 13.8 % (12-17); White Blood Count 10.5 10^3/uL (3.6-10.2)
[2024-02-24 06:12] LABS: Calcium 9.4 mg/dL (8.6-10.3); Creatinine, Serum 0.58 mg/dL (0.67-1.17); Potassium 4.6 mmol/L (3.5-5.0); eGFR CKD-EPI 110.3 (>60)
[2024-02-24] MEDS ORDERED: Metoprolol Tartrate 5 mg VIAL 5 ml VIAL (1 mg/ml) IV PRN (06:44)
[2024-02-24 08:52] LABS: C Reactive Protein 78.89 mg/L (<8.01)
[2024-02-24 12:22] LABS: Urine Appearance Clear; Urine Bilirubin Negative (Negative); Urine Blood Negative (Negative); Urine Color Yellow; Urine Glucose 2+ (>=150 mg/dL) (Negative); Urine Ketones 1+ (Negative); Urine Nitrite Negative (Negative); Urine Protein Trace (Negative); Urine Urobilinogen Negative (Negative); Urine pH 6.5 (5.0-8.0)
[2024-02-24] MEDS: Levalbuterol 0.63MG/3ML NEB UNIT OF USE INH SCH (13:35)
[2024-02-24] MEDS: methylPREDNISolone SOD SUCC 40 mg/ml 1 ml VIAL IV SCH (13:39)
[2024-02-24] MEDS: Azithromycin 500 mg/250 ml NS 500 MG/250 ML BAG IVPB SCH (14:38)
[2024-02-24] MEDS: cefTRIAXone 1 gm/50 mL D5W 1 GM/50 ML BAG IV SCH (17:05)
[2024-02-24] MEDS ORDERED: cefTRIAXone 1 gm/50 mL D5W 1 GM/50 ML BAG IV SCH (17:15)
[2024-02-24] MEDS: Levalbuterol 1.25MG/0.5ML NEB.SOL INH SCH (18:50)
[2024-02-24] MEDS: Cholecalciferol (VIT D3) 1,000 unit TAB PO SCH (20:22)
[2024-02-25] MEDS: Benzocaine/Menthol LOZ PO PRN (06:31)
[2024-02-25 06:33] LABS: ABS Monocytes 1.3 10^3/uL (0.0-1.1); ABS Neutrophils 10.8 10^3/uL (1.5-7.6); Hematocrit 36.3 % (38-53); Hemoglobin 12.2 g/dL (13.2-16.3); Lymphocyte % 7.5 %; Mean Corpuscular Hemoglobin 30.2 pg (27-33); Mean Corpuscular Hgb Conc 33.6 g/dL (31-36); Mean Platelet Volume 10.3 fL (7.5-11.2); Platelet Count 200 10^3/uL (150-450); Red Blood Count 4.04 10^6/uL (4.06-5.63); Red Cell Distribution Width 14.1 % (12-17)
[2024-02-25 06:55] LABS: Calcium 9.1 mg/dL (8.6-10.3); Creatinine, Serum 0.55 mg/dL (0.67-1.17); eGFR CKD-EPI 112.1 (>60)
[2024-02-26 06:09] LABS: ABS Lymphocytes 2.5 10^3/uL (1.0-4.8); ABS Monocytes 1.4 10^3/uL (0.0-1.1); ABS Neutrophils 7.1 10^3/uL (1.5-7.6); Hematocrit 38.5 % (38-53); Hemoglobin 13.3 g/dL (13.2-16.3); Lymphocyte % 22.8 %; Mean Corpuscular Hemoglobin 31.3 pg (27-33); Mean Corpuscular Hgb Conc 34.6 g/dL (31-36); Mean Corpuscular Volume 90.6 fL (80-97); Mean Platelet Volume 10.4 fL (7.5-11.2); Platelet Count 225 10^3/uL (150-450); Red Blood Count 4.26 10^6/uL (4.06-5.63); White Blood Count 11.2 10^3/uL (3.6-10.2)
[2024-02-26 06:35] LABS: Calcium 9.4 mg/dL (8.6-10.3); Creatinine, Serum 0.58 mg/dL (0.67-1.17); Potassium 4.7 mmol/L (3.5-5.0); eGFR CKD-EPI 110.3 (>60)
[2024-02-26 10:08] VITALS: BP 129/73
== END 2024-02-26 11:29 | disposition home or self-care (01) | DRG 871 ==
LOC: EDHOLD 11:51 → ED 11:51 → MEDTELE 23:02 → SUATTDRO 02-24 10:00
PROVIDERS: ADMIT Internal Medicine; ATTEND Internal Medicine